=== PATIENT | male | born 1975 | race Two or more races ===

== ENCOUNTER 2018-02-06 02:50 | Emergency (ER) | payer SELFPAY ==
[~2018-02-06] VITALS: Ht 165.1 cm; Wt 79.6 kg
[2018-02-06 06:35] VITALS: BP 172/112
== END 2018-02-06 06:35 | disposition left against medical advice (07) ==
LOC: ER 02:50
DX: R07.9 Chest pain, unspecified (principal); R55 Syncope and collapse; F17.200 Nicotine dependence, unspecified, uncomplicated
CPT/HCPCS: 71045; 93005; 99284; Z7610